=== PATIENT | male | born 1955 | race Two or more races ===

== ENCOUNTER 2023-04-30 07:40 | Inpatient (IN) | payer OTHER ==
[~2023-04-30] VITALS: Ht 185.4 cm; Wt 103.1 kg
[2023-04-30] VITALS (11 sets, daily range): BP systolic 93–113; BP diastolic 62–79
[~2023-04-30 07:40] MED LIST: ACET300T58 PO; ATOR10TA52 PO; CALC500C3 PO; CARB25TA79 PO; IBUP-1456 PO
[2023-04-30] MEDS ORDERED: TRANEXAMIC ACID 20 ML ONE (08:09)
[2023-04-30] MEDS ORDERED: VANCOMYCIN HCL 1000 MG VL ONE (08:10)
[2023-04-30] MEDS ORDERED: ceFAZolin 1GM/50ML 100 ML IV ONE (09:49)
[2023-04-30] MEDS ORDERED: ACETAMINOPHEN IV 1000 MG/100ML (10MG/ML) IV ONE (10:00)
[2023-04-30] MEDS ORDERED: PREGABALIN CAPSULE 75 MG CAP PO ONE (10:00)
[2023-04-30] MEDS ORDERED: CELECOXIB 100 MG CAP PO ONE (10:00)
[2023-04-30] MEDS ORDERED: MIDAZOLAM HCL 2MG/2ML 2ml VIAL (1mg/ml) ONE (11:51)
[2023-04-30] MEDS ORDERED: fentaNYL CITRATE 100 MCG/2 ML VL ONE (11:51)
[2023-04-30] MEDS ORDERED: MORPHINE SULF PF 5 MG/10 ML VIAL ONE ×2 (11:53→13:03)
[2023-04-30] MEDS ORDERED: BUPIVACAINE 0.25% INJ 50ML VIAL ONE ×2 (12:07→13:02)
[2023-04-30] MEDS ORDERED: DexAMETHasone SOD PHOS 4 MG/1ML SDV INJ ONE (12:07)
[2023-04-30] MEDS ORDERED: DexAMETHasone SOD PHOS 10MG/1ML VIAL INJ ONE (12:48)
[2023-04-30] MEDS ORDERED: KETOROLAC TROMETH 30 MG/ML 1ML VIAL ONE (13:03)
[2023-04-30] MEDS ORDERED: PHENYLEPHRINE HCL 10 MG/ML VL IV ONE (13:10)
[2023-04-30] MEDS ORDERED: PROPOFOL 10 MG/ML 20 ML IV ONE (13:17)
[2023-04-30] MEDS ORDERED: DexAMETHasone SOD PHOS 10MG/1ML VIAL INJ IV PRN (13:45)
[2023-04-30] MEDS ORDERED: HYDROmorphone HCL 2 MG/ML VL/or syr IV PRN (13:45)
[2023-04-30] MEDS ORDERED: ePHEDrine SULFATE 50 MG/ML AMP IV PRN (13:45)
[2023-04-30] MEDS ORDERED: LABETALOL HCL 5 MG/ML 4ML SYRINGE IV PRN (13:45)
[2023-04-30] MEDS ORDERED: NITROGLYCERIN 0.4 MG SL TAB SL PRN (13:45)
[2023-04-30] MEDS ORDERED: ONDANSETRON HCL 4 MG/2 ML VIAL IV PRN ×2 (13:45)
[2023-04-30] MEDS ORDERED: NALOXONE HCL 0.4 MG/ML VIAL IV PRN (13:45)
[2023-04-30] MEDS ORDERED: MIDAZOLAM HCL 2MG/2ML 2ml VIAL (1mg/ml) IV PRN (13:45)
[2023-04-30] MEDS ORDERED: MORPHINE SULFATE INJ 2 MG/ml SYRG IV PRN (13:45)
[2023-04-30] MEDS ORDERED: ceFAZolin 1GM/50ML 50 ML IV SCH (13:45)
[2023-04-30] MEDS: LACTATED RINGER'S 1,000 ML IV SCH ×2 (16:39→23:45)
[2023-04-30] MEDS: SODIUM CHLOR 0.9% PF (SALINE LOCK) 10ML VIAL/SYR IV SCH ×2 (16:41→21:46)
[2023-04-30] MEDS: ceFAZolin 1GM/50ML 50 ML IV SCH (18:52)
[2023-04-30] MEDS: CARBIDOPA W LEVODOPA 25/100mg TABLET PO SCH (21:45)
[2023-04-30] MEDS: ATORVASTATIN 20 MG TAB PO SCH (21:45)
[2023-04-30] MEDS: DOCUSATE SOD 100 MG CAP PO SCH (21:45)
[2023-04-30] MEDS ORDERED: CARBIDOPA W LEVODOPA 25/100mg TABLET PO SCH (22:00)
[2023-05-01] VITALS (21 sets, daily range): BP systolic 91–130; BP diastolic 59–89
[2023-05-01] MEDS: ceFAZolin 1GM/50ML 50 ML IV SCH ×2 (01:15→06:22)
[2023-05-01] MEDS: LACTATED RINGER'S 1,000 ML IV SCH ×2 (05:22→19:45)
[2023-05-01 05:44] LABS: Hematocrit 33.7 % (41.0-53.0); Hemoglobin 11.9 g/dL (13.5-17.5)
[2023-05-01] MEDS: SODIUM CHLOR 0.9% PF (SALINE LOCK) 10ML VIAL/SYR IV SCH ×3 (06:22→21:34)
[2023-05-01] MEDS: DOCUSATE SOD 100 MG CAP PO SCH ×2 (09:44→21:34)
[2023-05-01] MEDS: ENOXAPARIN SOD 40 MG/0.4 ML SYRINGE SC SCH (09:44)
[2023-05-01] MEDS: CARBIDOPA W LEVODOPA 25/100mg TABLET PO SCH ×2 (09:45→21:35)
[2023-05-01] MEDS: ATORVASTATIN 20 MG TAB PO SCH (21:35)
[2023-05-01] MEDS: CALCIUM CARB 500 MG CHEW TAB PO PRN (21:53)
[2023-05-01] MEDS: HYDROmorphone HCL 2 MG/ML VL/or syr IV PRN (22:01)
[2023-05-02 05:00] VITALS: BP 115/70
[2023-05-02] MEDS: LACTATED RINGER'S 1,000 ML IV SCH ×2 (05:04→15:45)
[2023-05-02] MEDS: SODIUM CHLOR 0.9% PF (SALINE LOCK) 10ML VIAL/SYR IV SCH ×2 (05:05→14:23)
[2023-05-02 05:37] LABS: Hematocrit 27.9 % (41.0-53.0); Hemoglobin 9.9 g/dL (13.5-17.5)
[2023-05-02] MEDS: HYDROmorphone HCL 2 MG/ML VL/or syr IV PRN (06:55)
[2023-05-02] MEDS: CALCIUM CARB 500 MG CHEW TAB PO PRN (06:55)
[2023-05-02 09:00] VITALS: BP 102/54
[2023-05-02] MEDS: DOCUSATE SOD 100 MG CAP PO SCH (10:23)
[2023-05-02] MEDS: ENOXAPARIN SOD 40 MG/0.4 ML SYRINGE SC SCH (10:23)
[2023-05-02] MEDS: CARBIDOPA W LEVODOPA 25/100mg TABLET PO SCH (10:23)
[2023-05-02 13:00] VITALS: BP 141/71
[2023-05-02 14:37] VITALS: BP 141/71
[2023-05-02] MEDS: OXYCODONE W/ ACETAMINOPHEN 5/325MG TABLET PO PRN ×2 (15:10→16:11)
== END 2023-05-02 16:10 | disposition home health service (06) | DRG 470 ==
LOC: SUR 07:40 → TELE 13:44 → TELE-EAST 15:54
PROVIDERS: ADMIT Orthopaedic Surgery Adult Reconstructive Orthopaedic Surgery; ATTEND Orthopaedic Surgery Adult Reconstructive Orthopaedic Surgery
PROC: 8E0Y0CZ Robotic Assisted Procedure of Lower Extremity, Open Approach (ICD-10-PCS; 2023-04-30)
PROC: 0SR90JZ Replacement of Right Hip Joint with Synthetic Substitute, Open Approach (ICD-10-PCS; principal; 2023-04-30 12:01)
DX: M16.11 Unilateral primary osteoarthritis, right hip (principal)
CPT/HCPCS: 36415; 72170; 73501; 85014; 85018; 86850; 86900; 86901; 97110; 97116; 97163; 97530; G0378; J0131; J0690; J1100; J1885; J2250; J2704; J3490

== ENCOUNTER 2024-02-24 09:51 | Observation (INO) | payer OTHER ==
[~2024-02-24] VITALS: Ht 184.2 cm; Wt 75.7 kg
[2024-02-24 10:18] LABS: Basophils # (auto) 0 10 ^3/uL (0-0.2); Basophils % (auto) 0.2 % (0.0-2.0); Eosinophils # (auto) 0.1 10 ^3/uL (0-0.8); Eosinophils % (auto) 0.6 % (0.0-7.0); Hematocrit 40.3 % (41.0-53.0); Hemoglobin 13.2 g/dL (13.5-17.5); Lymphocytes # (auto) 1.6 10 ^3/uL (0.4-5.4); Lymphocytes % (auto) 13.5 % (10.0-50.0); Mean Corpuscular Hemoglobin 26.9 pg (28.0-32.0); Mean Corpuscular Hgb Conc. 32.6 g/dL (32.0-36.0); Mean Corpuscular Volume 82.6 fL (80.0-100.0); Monocytes % (auto) 8.1 % (0.0-12.0); Neutrophils # (auto) 9.4 10 ^3/uL (1.6-8.6); Neutrophils % (auto) 77.6 % (37.0-80.0); Red Blood Cells 4.88 10^6/uL (4.5-5.90); Red Cell Distribution Width 13.8 % (11.8-14.3); White Blood Cell 12.1 10^3/uL (4.4-10.8)
[2024-02-24] MEDS: SODIUM CHLORIDE 0.9% 1,000 ML IV ONE ×2 (10:30→11:34)
[2024-02-24 10:35] LABS: Alanine Aminotransferase 21 U/L (7-40); Albumin 4.5 g/dL (3.2-4.8); Alkaline Phosphatase 120 U/L (46-116); Anion Gap 8 (5-15); Aspartate Aminotransferase 15 U/L (13-40); BUN/Creatinine Ratio 14.3 (10.0-20.0); Bilirubin, Total 1.2 mg/dL (0.2-1.0); Blood Urea Nitrogen 16 mg/dL (9-23); Calcium 10.1 mg/dL (8.7-10.4); Carbon Dioxide 27 mmol/L (20-30); Chloride 101 mmol/L (98-107); Glucose 115 mg/dL (74-106); Potassium 4.1 mmol/L (3.5-5.1); Sodium 136 mmol/L (136-145); Total Protein 7.8 g/dL (5.7-8.2)
[2024-02-24 11:05] VITALS: PULSE 74; RESP 18; O2SAT 96
[2024-02-24] MEDS: IOHEXOL 350 MG/ML 100ML IJ ONE (14:15)
[2024-02-24] MEDS: NITROGLYCERIN 0.4 MG SL TAB SL ONE (15:03)
[2024-02-24] MEDS: ASPirin 325 MG TAB PO ONE (15:11)
[2024-02-24] MEDS: cefTRIAXone 1GM/50ML D5W 50 ML IV ONE (15:11)
[2024-02-24] MEDS ORDERED: MORPHINE SULFATE INJ 2 MG/ml SYRG IV PRN ×2 (15:15)
[2024-02-24] MEDS ORDERED: ACETAMINOPHEN 325 MG TAB PO PRN (15:15)
[2024-02-24] MEDS ORDERED: NITROGLYCERIN 0.4 MG SL TAB SL PRN (15:15)
[2024-02-24] MEDS ORDERED: ONDANSETRON HCL 4 MG/2 ML VIAL IV PRN (15:15)
[2024-02-24] MEDS ORDERED: HYDROcodone-ACET 5/325MG TAB PO PRN (15:15)
[2024-02-24] MEDS ORDERED: IBUPROFEN 800 MG TAB PO PRN (17:00)
[2024-02-24] MEDS ORDERED: CALCIUM CARB 500 MG CHEW TAB PO SCH (17:00)
[2024-02-24] MEDS ORDERED: CYCL-611 PO (17:06)
[2024-02-24] MEDS ORDERED: GABA-1250 PO (17:06)
[2024-02-24 17:20] VITALS: BP 113/76; PULSE 85; RESP 18; TEMP 98.6; O2SAT 94
[2024-02-24 17:30] VITALS: BP 113/76; PULSE 85; RESP 18; TEMP 98.6; O2SAT 94
[2024-02-24] MEDS ORDERED: ACETAMINOPHEN/CODEINE#3 (300/30mg) TAB PO PRN (19:45)
[2024-02-24] MEDS ORDERED: ZOLPIDEM TARTRATE 5 MG TAB PO PRN (19:45)
[2024-02-24 20:00] VITALS: PULSE 74; PULSE 85; RESP 18; O2SAT 95
[2024-02-24 21:00] VITALS: BP 115/77; PULSE 85; RESP 18; TEMP 98.2; O2SAT 95
[2024-02-24 21:19] LABS: Urine Bacteria None Seen /hpf (None Seen)
[2024-02-24 21:22] LABS: Rapid Influenza A Negative (Negative); Rapid Influenza B Negative (Negative)
[2024-02-24 21:23] LABS: COVID19 ANTIGEN SOFIA FIA NEGATIVE (NEGATIVE)
[2024-02-24 21:28] LABS: Urine Amorphous Crystal FEW /hpf (None Seen); Urine Blood Negative /uL (Negative); Urine Clarity Clear (Clear); Urine Color Yellow (Yellow); Urine Protein, UAD TRACE (Negative); Urine Specific Gravity 1.042 (1.001-1.035); Urine Urobilinogen Normal (Negative); Urine WBC 1 /hpf (0 - 3); Urine pH 7.5 (5.0-9.0)
[2024-02-24 21:41] LABS: Amphetamine Screen, Urine Neg (NEGATIVE); Barbiturate Scree,Urine Neg (NEGATIVE); Benzodiazephine Screen, Urine Neg (NEGATIVE); Cannabinoid Screen, Urine Pos (NEGATIVE); Cocaine Screen, Urine Neg (NEGATIVE); Opiate Scree,Urine Neg (NEGATIVE); Phencyclidine Screen, Urine Neg (NEGATIVE)
[2024-02-24] MEDS: ATORVASTATIN 20 MG TAB PO SCH (22:00)
[2024-02-24] MEDS ORDERED: ACETAMINOPHEN PO SCH (22:00)
[2024-02-24] MEDS: CARBIDOPA PO SCH (22:00)
[2024-02-24] MEDS ORDERED: CODEINE PO SCH (22:00)
[2024-02-24] MEDS: LEVODOPA PO SCH (22:00)
[2024-02-24] MEDS: HEPARIN SODIUM (PORCINE) 5000 UNITS/ML 1ML VIAL SC SCH (23:27)
[2024-02-24] MEDS: GABAPENTIN 300 MG CAP PO ONE (23:30)
[2024-02-25] VITALS (8 sets, daily range): BP systolic 107–139; BP diastolic 72–76; PULSE 67–80; RESP 17–20; TEMP 97.4–98.4; O2SAT 95–97
[2024-02-25 05:33] LABS: Basophils # (auto) 0 10 ^3/uL (0-0.2); Basophils % (auto) 0.2 % (0.0-2.0); Eosinophils # (auto) 0.1 10 ^3/uL (0-0.8); Eosinophils % (auto) 0.8 % (0.0-7.0); Hematocrit 33.1 % (41.0-53.0); Hemoglobin 11.2 g/dL (13.5-17.5); Lymphocytes # (auto) 2.1 10 ^3/uL (0.4-5.4); Lymphocytes % (auto) 22.7 % (10.0-50.0); Mean Corpuscular Hemoglobin 27.7 pg (28.0-32.0); Mean Corpuscular Hgb Conc. 33.8 g/dL (32.0-36.0); Mean Corpuscular Volume 82.1 fL (80.0-100.0); Monocytes # (auto) 1.1 10 ^3/uL (0-1.3); Monocytes % (auto) 12.2 % (0.0-12.0); Neutrophils # (auto) 5.8 10 ^3/uL (1.6-8.6); Neutrophils % (auto) 64.1 % (37.0-80.0); Red Blood Cells 4.04 10^6/uL (4.5-5.90); Red Cell Distribution Width 13.7 % (11.8-14.3); White Blood Cell 9.1 10^3/uL (4.4-10.8)
[2024-02-25 05:46] LABS: Alanine Aminotransferase 13 U/L (7-40); Albumin 3.8 g/dL (3.2-4.8); Alkaline Phosphatase 90 U/L (46-116); Anion Gap 8 (5-15); Aspartate Aminotransferase 14 U/L (13-40); BUN/Creatinine Ratio 12.1 (10.0-20.0); Bilirubin, Total 1.1 mg/dL (0.2-1.0); Blood Urea Nitrogen 12 mg/dL (9-23); Calcium 9.4 mg/dL (8.7-10.4); Carbon Dioxide 25 mmol/L (20-30); Chloride 105 mmol/L (98-107); Glucose 109 mg/dL (74-106); Potassium 3.9 mmol/L (3.5-5.1); Sodium 138 mmol/L (136-145); Total Protein 6.8 g/dL (5.7-8.2)
[2024-02-25 07:57] LABS: INR 1.14 (0.9-1.15); Partial Thromboplastin Time 35.2 SEC (24.5-34.5); Prothrombin Time 11.9 sec (9.3-11.8)
[2024-02-25 09:20] LABS: Hepatitis B Surface Antigen Negative (Negative)
[2024-02-25 09:42] LABS: Hepatitis C Antibody Negative (Negative)
[2024-02-25] MEDS ORDERED: IOHEXOL 300 MG/ML 100ML BOTTLE IJ ONE (15:06)
[2024-02-25] MEDS ORDERED: LIDOCAINE 2%HCL (LOCAL ANESTH.) INJ 10ml MDV ONE (15:06)
[2024-02-25] MEDS ORDERED: GABAPENTIN 300 MG CAP PO SCH (18:00)
[2024-02-25] MEDS ORDERED: LEVODOPA PO SCH (22:00)
[2024-02-25] MEDS ORDERED: CARBIDOPA PO SCH (22:00)
== END 2024-02-25 17:57 | disposition home or self-care (01) ==
LOC: ER 09:51 → TELE 15:06 → TELE-EAST 17:06
PROVIDERS: ADMIT Student in an Organized Health Care Education/Training Program; ATTEND Student in an Organized Health Care Education/Training Program
DX: R07.89 Other chest pain (principal); Z20.822 Contact with and (suspected) exposure to COVID-19; M25.552 Pain in left hip; M25.551 Pain in right hip; G20.A1 Parkinson's disease without dyskinesia, without mention of fluctuations; F02.80 Dementia in other diseases classified elsewhere, unspecified severity, without behavioral disturbance, psychotic disturbance, mood disturbance, and anxiety; N28.1 Cyst of kidney, acquired; R06.02 Shortness of breath; J98.4 Other disorders of lung; I95.9 Hypotension, unspecified; Q65.89 Other specified congenital deformities of hip; I51.4 Myocarditis, unspecified; D64.9 Anemia, unspecified; J98.11 Atelectasis; M19.90 Unspecified osteoarthritis, unspecified site; K21.9 Gastro-esophageal reflux disease without esophagitis; J45.909 Unspecified asthma, uncomplicated; Z96.643 Presence of artificial hip joint, bilateral; Z79.899 Other long term (current) drug therapy
CPT/HCPCS: 36415; 71045; 71275; 72170; 80053; 80307; 81001; 83605; 84484; 85025; 85610; 85730; 86803; 87040; 87205; 87340; 87426; 87804; 88104; 93005; 93306; 96361; 96365; 96372; 99285; G0378; J0696; J1644; J2001; Q9967; 77002